=== PATIENT | male | born 1995 | race American Indian/Alaskan Native ===

== ENCOUNTER 2020-06-26 11:26 | Emergency (ER) | payer OTHER ==
--- NOTE | 2020-06-26 11:28 | Emergency Department Report ---
Blank Doc - Documentation Documentation: 25-year-old male that presents with rhinnorrhea and cough. Stated has some ch est pains only during cough. This initial assessment/diagnostic orders/clinical plan/treatment(s) is/are subject to change based on patient's health status, clinical progression and re- assessment by fellow clinical providers in the ED. Further treatment and workup at subsequent clinical providers discretion. Patient/guardians urged not to elope from the ED as their condition may be serious if not clinically assessed and managed. Initial orders include: 1- Patient sent to [facility] for further evaluation and treatment 2- CXR
[2020-06-26 11:33] VITALS: BP 117/94
--- NOTE | 2020-06-26 12:05 | XRay Report ---
CHEST 2 VIEWS 1150 INDICATION / CLINICAL INFORMATION: cough COMPARISON: None available. FINDINGS: SUPPORT DEVICES: None. HEART / MEDIASTINUM: No significant abnormality. LUNGS / PLEURA: No significant pulmonary or pleural abnormality. No pneumothorax. ADDITIONAL FINDINGS: No significant additional findings. IMPRESSION: No significant acute abnormality Signer Name: Hadley Jeffers MD Signed: 06/26/2020 12:01 PM Workstation Name: [id number]
[2020-06-26] MEDS ORDERED: ACETAMINOPHEN 500 MG TAB PO ONE (12:22)
--- NOTE | 2020-06-26 12:23 | Emergency Department Report ---
Minor Respiratory - HPI Chief Complaint: Upper Respiratory Infection Stated Complaint: CHEST PAIN/SINUS Time Seen by Provider: 06/26/20 11:27 Duration: 3 Days Minor Respiratory: Yes Rhinorrhea, Yes Able to Tolerate Fluids, Yes Cough, Yes Sick Contacts, Yes Chest Pain (With cough ), Yes Shortness of Breath, Yes Fever, No Sore Throat, No Ear Pain Other History: The patient was evaluated in the emergency department for symptoms described in the history of present illness. He/she was evaluated in the context of the global COVID-19 pandemic, which necessitated consideration that the patient might be at risk for infection with the virus that causes COVID-19. Institutional protocols and algorithms that pertain to the evaluation of patients at risk for COVID-19 are in a state of rapid change based on information released by regulatory bodies including the CDC and federal and state organizations. These policies and algorithms were followed during the patient's care in the emergency department. Please note that these policies, procedures and recommendations changed on a rapid basis. 25-year-old - [place] male presents to the emergency room complaining of body aches, shortness of breath, fever, cough, runny nose and sneezing since Saturday. Patient states that his son was sick first. Patient states that coughing makes his chest hurt. Patient reports he had a negative Covid test 3 weeks ago. Patient reports he has tried taking cppt-fuf-[id number] cough medication. ED Review of Systems ROS: Stated complaint: CHEST PAIN/SINUS Other details as noted in HPI Comment: All other systems reviewed and negative ED Past Medical Hx - Past Medical History Previous Medical History?: No - Surgical History Past Surgical History?: No - Social History Smoking Status: Current Every Day Smoker Substance Use Type: Alcohol Minor Respiratory Exam - Exam General: Vital signs noted. No distress. Alert and acting appropriately. HEENT: Yes Moist Mucous Membranes, Yes Rhinorrhea, Yes Frontal Tenderness, Yes Maxillary Tenderness Ear: Neither EAC Pain Neck: Yes Supple, No Adenopathy Lungs: Yes Good Air Exchange, No Wheezes, No Ronchi, No Stridor, No Cough, No Labored Respirations, No Retractions, No Use of Accessory Muscles, No Other Abnormal Lung Sounds Heart: No Regular (Mild tachycardic), No Murmur Abdomen: Yes Normal Bowel Sounds, No Tenderness, No Peritoneal Signs Skin: No Rash, No Edema Neurologic: Alert and oriented, no deficits. Musculoskeletal: Unremarkable. ED Course Vital Signs 06/26/20 11:28 Temperature 101.4 F H Pulse Rate 112 H Respiratory 22 Rate Blood Pressure 117/94 O2 Sat by Pulse 94 Oximetry ED Medical Decision Making - Lab Data Laboratory Tests 06/26/20 Unknown Influenza A (Rapid) Negative Influenza B (Rapid) Negative - Radiology Data Radiology results: report reviewed [facility] [address] [place] [address] XRay Report Signed Patient: JOHN RUBALCAVA JR MR# : [id number] : 1995 Acct:[id number] Age/Sex: 25 / M ADM Date: 06/26/20 Loc: ED Attending Dr: Ordering Physician: SHARON WALDRON NP Date of Service: 06/26/20 Procedure(s): XR chest routine 2V Accession Number(s): [id number] cc: SHARON WALDRON NP Fluoro Time In Minutes: CHEST 2 VIEWS 1150 INDICATION / CLINICAL INFORMATION: cough COMPARISON: None available. FINDINGS: SUPPORT DEVICES: None. HEART / MEDIASTINUM: No significant abnormality. LUNGS / PLEURA: No significant pulmonary or pleural abnormality. No pneumothorax. ADDITIONAL FINDINGS: No significant additional findings. IMPRESSION: No significant acute abnormality Signer Name: Hadley Jeffers MD Signed: 06/26/2020 12:01 PM Workstation Name: [id number] Transcribed By: Dictated By: Hadley Jeffers MD Electronically Authenticated By: Hadley Jeffers MD Signed Date/Time: 06/26/20 1201 DD/ 1200 TD/TT: - Medical Decision Making 25-year-old -[place] male presents to the emergency room complaining of body aches, shortness of breath, fever, cough, runny nose and sneezing since Saturday. Patient states that his son was sick first. Patient states that coughing makes his chest hurt. Patient reports he had a negative Covid test 3 weeks ago. Patient reports he has tried taking qihs-ydm-muwlicj cough medication. Chest x-ray is negative for any acute abnormalities. Patient was given acetaminophen 1 g p.o. for fever. Rapid flu obtained by provider and sent to lab. Ibuprofen ordered 800 mg for fever and body aches. Negative flu. Discussed with patient he needs to follow-up with a primary care provider as well as go get Covid testing. Continue with ibuprofen and Tylenol for fever and body aches. Increase his fluid intake. Critical care attestation.: If time is entered above; I have spent that time in minutes in the direct care of this critically ill patient, excluding procedure time. ED Disposition Clinical Impression: Viral syndrome Disposition: DC-01 TO HOME OR SELFCARE Is pt being admited?: No Does the pt Need Aspirin: No Condition: Stable Instructions: Viral Syndrome (ED) Additional Instructions: Chest x-ray negative flu is negative. Your symptoms appear most consistent with a nonspecific viral syndrome. However, given this current pandemic, COVID-19 is in the differential of possibilities. Despite your previous negative COVID-19 test, I do recommend repeat outpatient Covid 19 testing. In the meantime, isolate/quarantine yourself and stay away from anyone who is elderly, immunocompromised or chronically ill. You can use ibuprofen every 6-8 hours and Tylenol every 4-8 hours, using the dosing on the back of the bottle, as needed for any fever or body aches. Return to the emergency department with any worsening of your symptoms, development of chest pain or shortness of breath, or with any acute distress Referrals: [facility]IMARY [facility] [Primary Care Provider] - 3-5 Days [facility] [Provider Group] - 3-5 Days Forms: Work/School Release Form(ED)
[2020-06-26] MEDS ORDERED: IBUPROFEN 800 MG TAB PO ONE (14:10)
== END 2020-06-26 15:29 | disposition home or self-care (01) ==
LOC: ED 11:26
DX: B34.9 Viral infection, unspecified (principal); J34.89 Other specified disorders of nose and nasal sinuses; R05 Cough; R07.89 Other chest pain; F17.200 Nicotine dependence, unspecified, uncomplicated
CPT/HCPCS: 71046; 87400